=== PATIENT | male | born 1990 | race Caucasian/White ===

== ENCOUNTER 2018-03-30 06:56 | Emergency (ER) | payer OTHER ==
[~2018-03-30] VITALS: Ht 175.3 cm; Wt 70.4 kg
[~2018-03-30 06:56] MED LIST: ALBUTEROL SULF8.5 GM IH
[2018-03-30 09:41] VITALS: BP 122/75
== END 2018-03-30 09:42 | disposition home or self-care (01) ==
LOC: EME 06:56
DX: S81.811A Laceration without foreign body, right lower leg, initial encounter (principal); W23.0XXA Caught, crushed, jammed, or pinched between moving objects, initial encounter; W19.XXXA Unspecified fall, initial encounter; Y99.0 Civilian activity done for income or pay; Z23 Encounter for immunization; J45.909 Unspecified asthma, uncomplicated; Z87.891 Personal history of nicotine dependence
CPT/HCPCS: 73564; 73590; 99281; 99284

== ENCOUNTER 2018-04-07 10:30 | Emergency (ER) | payer OTHER ==
[~2018-04-07] VITALS: Ht 175.3 cm; Wt 68.9 kg
[2018-04-07] MEDS ORDERED: KEFLEX500 MG PO (13:45)
[2018-04-07] MEDS ORDERED: MOTRIN600 MG PO (13:46)
[2018-04-07 13:53] VITALS: BP 119/66
== END 2018-04-07 13:53 | disposition home or self-care (01) ==
LOC: EME 10:30
DX: M25.561 Pain in right knee (principal); M79.89 Other specified soft tissue disorders; Z91.81 History of falling
CPT/HCPCS: 73564; 99281; 99284

== ENCOUNTER 2018-04-27 21:32 | Emergency (ER) | payer BC ==
[~2018-04-27] VITALS: Ht 175.3 cm; Wt 67.1 kg
[~2018-04-27 21:32] MED LIST changes: +KEFLEX500 MG PO; +MOTRIN600 MG PO
[2018-04-27 23:32] VITALS: BP 106/87
== END 2018-04-27 23:33 | disposition home or self-care (01) ==
LOC: TRA 21:32 → EME 21:32 → TRA 23:33
DX: S70.01XA Contusion of right hip, initial encounter (principal); S50.311A Abrasion of right elbow, initial encounter; S60.812A Abrasion of left wrist, initial encounter; V13.4XXA Pedal cycle driver injured in collision with car, pick-up truck or van in traffic accident, initial encounter; Y93.55 Activity, bike riding; Y92.410 Unspecified street and highway as the place of occurrence of the external cause
CPT/HCPCS: 73502; 99281; 99283